=== PATIENT | female | born 1940 | race Caucasian/White ===

== ENCOUNTER → 2019-11-15 | Day surgery (SDC) | payer MEDICARE, OTHER ==
[~2019-11-15] MED LIST: Cefuroxime 10 MG/ML SYRINGE EYELF SCH; Lidocaine 1% PF 2 ML SDV INJECT SCH; Pilocarpine 4% Ophth Soln 15 ML Bot EYELF SCH
[2019-11-15] MEDS: Polymyxin B/Trimethoprim 10 ML Bottle EYELF SCH ×3 (07:24→09:16)
[2019-11-15] MEDS: Brimonidine 0.2% Ophth Soln 5 ML Bottle EYELF SCH ×3 (07:30→09:16)
--- NOTE | 2019-11-15 07:33 | PCM.PREANE ---
Preanesthetic Assessment - Anesthesia/Transfusion/Family Hx Anesthesia History: Prior Anesthesia Without Reaction Family History of Anesthesia Reaction: No Transfusion History: No Prior Transfusion(s) - Review of Systems Pulmonary: No Symptoms, Cough, Other (current smoker, ) Cardiovascular: Other (HTN) Gastrointestinal: No Symptoms Neurological: No Symptoms Other: Reports: Diabetes (insulin dependent, am glucose at [id number]) - Physical Assessment NPO Status Date: 11/14/19 NPO Status Time: 21:30 Weight: 77.111 kg ASA Class: 2 Mental Status: Alert & Oriented x3 Airway Class: Mallampati = 2 Dentition: Reports: Normal Dentition Thyro-Mental Finger Breadths: 3 Mouth Opening Finger Breadths: 3 ROM/Head Extension: Full Lungs: Clear to Auscultation, Normal Respiratory Effort Cardiovascular: Regular Rate, Regular Rhythm - Allergies Allergies/Adverse Reactions: Allergies Allergy/AdvReac Type Severity Reaction Status Date / Time atorvastatin [From Lipitor] Allergy Cannot Verified 11/14/19 16:15 Remember ketorolac [From Toradol] Allergy Cannot Verified 11/14/19 16:15 Remember rosuvastatin [From Crestor] Allergy Cannot Verified 11/14/19 16:15 Remember Hjokqje-Ygf-Dxe Reductase Allergy Cannot Verified 11/14/19 16:15 Inhibitor Remember - Blood Blood Available: No Product(s) Available: None - Anesthesia Plan Pre-Op Medication Ordered: None - Acknowledgements Anesthesia Type Planned: MAC Pt an Appropriate Candidate for the Planned Anesthesia: Yes Alternatives and Risks of Anesthesia Discussed w Pt/Guardian: Yes Pt/Guardian Understands and Agrees with Anesthesia Plan: Yes PreAnesthesia Questionnaire - HOME MEDS Home Medications: Home Meds Aspirin [Halfprin] 81 mg PO DAILY 11/14/19 [History] Cinnamon Bark [Cinnamon] 500 mg PO DAILY 11/14/19 [History] Clopidogrel Bisulfate [Plavix] 75 mg PO DAILY 11/14/19 [History] Insulin Detemir [Levemir] 28 units SQ QAM 11/14/19 [History] Ramipril 2.5 mg PO DAILY 11/14/19 [History] Ubidecarenone [COQ-10] 30 mg PO DAILY 11/14/19 [History] - CURRENT (IN HOUSE) MEDS Current Meds: Current Medications Brimonidine Tartrate (Alphagan 0.2% Ophth Soln) 0 ml EYELF ASDIRECTED [facility] Stop: 11/15/19 18:00 Cefuroxime Sodium (Zinacef) 0 mg EYELF ASDIRECTED [facility] Stop: 11/15/19 18:00 Lidocaine HCl (Xylocaine-Mpf 1%) 0 ml INJECT ASDIRECTED [facility] Stop: 11/15/19 18:00 Phenylephrine HCl (Ebenezer-Synephrine 2.5% Ophth Soln) 0 ml EYELF ASDIRECTED [facility] Stop: 11/15/19 18:00 Pilocarpine HCl (Pilocar 4% Ophth Soln) 0 ml EYELF ASDIRECTED [facility] Stop: 11/15/19 18:00 Polymyxin/Trimethoprim Sulfate (Polytrim Ophth Soln) 0 ml EYELF ASDIRECTED [facility] Stop: 11/15/19 18:00 Last Admin: 11/15/19 07:24 Dose: 1 drop Tetracaine HCl (Tetracaine 0.5% Steri-Unit Casandra) 0 ml EYELF ASDIRECTED [facility] Stop: 11/15/19 18:00 Tropicamide (Mydriacyl 1% Ophth Soln) 0 ml EYELF ASDIRECTED [facility] Stop: 11/15/19 18:00
[2019-11-15] MEDS: Phenylephrine 2.5% Ophth Soln 2 ML Bot EYELF SCH ×5 (07:35→08:44)
[2019-11-15] MEDS: Tropicamide 1% Ophth Soln 15 ML Bottle EYELF SCH ×4 (07:40→08:22)
[2019-11-15] MEDS: Tetracaine HCl/PF 0.5% 4 ML Bottle EYELF SCH ×2 (08:31→08:51)
--- NOTE | 2019-11-15 09:18 | PCM48HPAN ---
Post Anesthesia Note - EVALUATION WITHIN 48HRS OF ANESTHETIC Vital Signs in Normal Range: Yes Patient Participated in Evaluation: Yes Respiratory Function Stable: Yes Airway Patent: Yes Cardiovascular Function Stable: Yes Hydration Status Stable: Yes Pain Control Satisfactory: Yes Nausea and Vomiting Control Satisfactory: Yes Mental Status Recovered: Yes Vital Signs: Last Vital Signs Temp 36.8 C 11/15/19 07:10 Pulse 78 11/15/19 07:10 Resp 16 11/15/19 07:10 BP 146/60 H 11/15/19 07:10 Pulse Ox 95 11/15/19 07:10
== END ==
LOC: JD.SDS 06:53
PROVIDERS: ATTEND Ophthalmology
DX: E10.36 Type 1 diabetes mellitus with diabetic cataract (principal); H25.813 Combined forms of age-related cataract, bilateral; H21.81 Floppy iris syndrome; H21.42 Pupillary membranes, left eye; I10 Essential (primary) hypertension; E78.00 Pure hypercholesterolemia, unspecified; F17.200 Nicotine dependence, unspecified, uncomplicated; Z83.518 Family history of other specified eye disorder; Z79.02 Long term (current) use of antithrombotics/antiplatelets
CPT/HCPCS: 66982; 82962; J0697; J2001

== ENCOUNTER 2020-01-17 06:45 | Day surgery (SDC) | payer MEDICARE, OTHER ==
[2020-01-17] MEDS ORDERED: Cefuroxime 10 MG/ML SYRINGE EYELF SCH (07:00)
[2020-01-17] MEDS ORDERED: Phenylephrine 2.5% Ophth Soln 2 ML Bot EYELF SCH (07:00)
[2020-01-17] MEDS ORDERED: Brimonidine 0.2% Ophth Soln 5 ML Bottle EYELF SCH (07:00)
[2020-01-17] MEDS ORDERED: Tropicamide 1% Ophth Soln 15 ML Bottle EYERT SCH (07:00)
[2020-01-17] MEDS ORDERED: Polymyxin B/Trimethoprim 10 ML Bottle EYELF SCH (07:00)
[2020-01-17] MEDS ORDERED: Tetracaine HCl/PF 0.5% 4 ML Bottle EYELF SCH (07:00)
[2020-01-17] MEDS ORDERED: Lidocaine 1% PF 2 ML SDV INJECT SCH ×2 (07:00)
[2020-01-17] MEDS ORDERED: Tropicamide 1% Ophth Soln 15 ML Bottle EYELF SCH (07:00)
[2020-01-17] MEDS ORDERED: Cefuroxime 10 MG/ML SYRINGE EYERT SCH (07:00)
[2020-01-17] MEDS ORDERED: Pilocarpine 4% Ophth Soln 15 ML Bot EYELF SCH (07:00)
[2020-01-17] MEDS ORDERED: Pilocarpine 4% Ophth Soln 15 ML Bot EYERT SCH (07:00)
[2020-01-17] MEDS: Polymyxin B/Trimethoprim 10 ML Bottle EYERT SCH ×3 (07:12→08:41)
[2020-01-17] MEDS: Brimonidine 0.2% Ophth Soln 5 ML Bottle EYERT SCH ×3 (07:17→08:41)
[2020-01-17] MEDS: Phenylephrine 2.5% Ophth Soln 2 ML Bot EYERT SCH ×5 (07:22→08:11)
[2020-01-17] MEDS: Tropicamide 1% Ophth Soln 15 ML Bottle EYERT SCH ×4 (07:27→08:03)
--- NOTE | 2020-01-17 07:44 | PCM.PREANE ---
Preanesthetic Assessment - Anesthesia/Transfusion/Family Hx Anesthesia History: Prior Anesthesia Without Reaction Family History of Anesthesia Reaction: No Transfusion History: No Prior Transfusion(s) - Review of Systems General: No Symptoms Pulmonary: Shortness of Breath, Wheezing, Other (smoker, HTN) Cardiovascular: Other Gastrointestinal: No Symptoms Neurological: No Symptoms Other: Reports: Diabetes (IDDM, am glucose 182) - Physical Assessment NPO Status Date: 01/16/20 NPO Status Time: 19:00 Vital Signs: Last Vital Signs Temp 36.4 C 01/17/20 06:55 Pulse 76 01/17/20 06:55 Resp 16 01/17/20 06:55 BP 130/61 01/17/20 06:55 Pulse Ox 96 01/17/20 06:55 Height: 1.73 m Weight: 77.111 kg ASA Class: 3 Mental Status: Alert & Oriented x3 Airway Class: Mallampati = 2 Dentition: Reports: Normal Dentition Thyro-Mental Finger Breadths: 3 Mouth Opening Finger Breadths: 3 ROM/Head Extension: Full Lungs: Decreased Breath Sounds, Wheezing Cardiovascular: Regular Rate, Regular Rhythm - Lab Values: Laboratory Last Values POC Glucose 182 mg/dL (83-110) H 01/17/20 07:37 - Allergies Allergies/Adverse Reactions: Allergies Allergy/AdvReac Type Severity Reaction Status Date / Time ketorolac [From Toradol] Allergy Other Verified 12/20/19 13:06 atorvastatin [From Lipitor] AdvReac Muscle Verified 12/23/19 15:49 Aches rosuvastatin [From Crestor] AdvReac Muscle Verified 12/23/19 15:49 Aches Ijuylvj-Ggm-Jwe Reductase AdvReac Muscle Verified 12/23/19 15:49 Inhibitor Aches - Blood Blood Available: No Product(s) Available: None - Anesthesia Plan Pre-Op Medication Ordered: None - Acknowledgements Anesthesia Type Planned: MAC Pt an Appropriate Candidate for the Planned Anesthesia: Yes Alternatives and Risks of Anesthesia Discussed w Pt/Guardian: Yes Pt/Guardian Understands and Agrees with Anesthesia Plan: Yes PreAnesthesia Questionnaire - HOME MEDS Home Medications: Home Meds Aspirin [Halfprin] 81 mg PO DAILY 11/14/19 [History] Cinnamon Bark [Cinnamon] 500 mg PO DAILY 11/14/19 [History] Clopidogrel Bisulfate [Plavix] 75 mg PO DAILY 11/14/19 [History] Insulin Detemir [Levemir] 28 units SQ QAM 11/14/19 [History] ramipriL [Ramipril] 2.5 mg PO DAILY 11/14/19 [History] Ubidecarenone [COQ-10] 30 mg PO DAILY 01/16/20 [History] - CURRENT (IN HOUSE) MEDS Current Meds: Current Medications Brimonidine Tartrate (Alphagan 0.2% Ophth Soln) 0 ml EYERT ASDIRECTED [facility] Stop: 01/17/20 23:00 Last Admin: 01/17/20 07:17 Dose: 1 drop Cefuroxime Sodium (Zinacef) 0 mg EYERT ASDIRECTED [facility] Stop: 01/17/20 23:00 Lidocaine HCl (Xylocaine-Mpf 1%) 1 ml INJECT ASDIRECTED [facility] Stop: 01/17/20 23:00 Phenylephrine HCl (Ebenezer-Synephrine 2.5% Ophth Soln) 0 ml EYERT ASDIRECTED [facility] Stop: 01/17/20 23:00 Last Admin: 01/17/20 07:40 Dose: 1 drop Pilocarpine HCl (Pilocar 4% Ophth Soln) 0 ml EYERT ASDIRECTED [facility] Stop: 01/17/20 23:00 Polymyxin/Trimethoprim Sulfate (Polytrim Ophth Soln) 0 ml EYERT ASDIRECTED [facility] Stop: 01/17/20 23:00 Last Admin: 01/17/20 07:12 Dose: 1 drop Tetracaine HCl (Tetracaine 0.5% Steri-Unit Casandra) 0 ml EYERT ASDIRECTED [facility] Stop: 01/17/20 23:00 Tropicamide (Mydriacyl 1% Ophth Soln) 0 ml EYERT ASDIRECTED [facility] Stop: 01/17/20 23:00 Last Admin: 01/17/20 07:35 Dose: 1 drop Discontinued Medications Tropicamide (Mydriacyl 1% Ophth Soln) 1 ml EYERT ASDIRECTED [facility]
[2020-01-17] MEDS: Tetracaine HCl/PF 0.5% 4 ML Bottle EYERT SCH ×4 (08:04→08:20)
--- NOTE | 2020-01-17 08:41 | PCM48HPAN ---
Post Anesthesia Note - EVALUATION WITHIN 48HRS OF ANESTHETIC Vital Signs in Normal Range: Yes Patient Participated in Evaluation: Yes Respiratory Function Stable: Yes Airway Patent: Yes Cardiovascular Function Stable: Yes Hydration Status Stable: Yes Pain Control Satisfactory: Yes Nausea and Vomiting Control Satisfactory: Yes Mental Status Recovered: Yes Vital Signs: Last Vital Signs Temp 36.4 C 01/17/20 06:55 Pulse 76 01/17/20 06:55 Resp 16 01/17/20 06:55 BP 130/61 01/17/20 06:55 Pulse Ox 96 01/17/20 06:55
== END 2020-01-17 08:50 | disposition home or self-care (01) ==
LOC: JD.SDS 06:45
PROVIDERS: ATTEND Ophthalmology
DX: E10.36 Type 1 diabetes mellitus with diabetic cataract (principal); H25.811 Combined forms of age-related cataract, right eye; H21.81 Floppy iris syndrome; H35.373 Puckering of macula, bilateral; H21.41 Pupillary membranes, right eye; I10 Essential (primary) hypertension; E78.00 Pure hypercholesterolemia, unspecified; F17.210 Nicotine dependence, cigarettes, uncomplicated; Z88.8 Allergy status to other drugs, medicaments and biological substances; Z79.82 Long term (current) use of aspirin; Z96.1 Presence of intraocular lens; Z98.42 Cataract extraction status, left eye
CPT/HCPCS: 66982; 82962; C1780; J0697; J2001